=== PATIENT | female | born 1980 | race Caucasian/White ===

== ENCOUNTER 2017-10-15 19:43 | Emergency (ER) | payer MEDICARE, BC ==
--- NOTE | 2017-10-15 20:00 | UC ---
Upper Extremity HPI - HPI Summary HPI Summary: 37 YEAR OLD FEMALE PRESENTS WITH LEFT SHOULDER PAIN. - History of Current Complaint Stated Complaint: LEFT ARM/SHOULDER PAIN Time Seen by Provider: 10/15/17 19:59 Hx Obtained From: Patient Hx Last Menstrual Period: 06/26/16 Onset/Duration: Sudden Onset Severity Initially: Moderate Severity Currently: Moderate Pain Scale Used: 0-10 Numeric - 7 Character: Sharp, Aching Aggravating Factor(s): Lifting, Flexion, Extension, Internal/External Rotation - Allergies/Home Medications Allergies/Adverse Reactions: Allergies Allergy/AdvReac Type Severity Reaction Status Date / Time No Known Allergies Allergy Verified 10/15/17 20:03 Home Medications: Home Medications Ibuprofen TAB* [Advil TAB*] 400 mg PO Q6H PRN 10/15/17 [History Confirmed ] PMH/Surg Hx/FS Hx/Imm Hx Previously Healthy: Yes - Surgical History Surgical History: Yes Surgery Procedure, Year, and Place: VSD repair - Family History Known Family History: Positive: Other - No recent FMH conjunctivitis - Social History Alcohol Use: None Substance Use Type: None Smoking Status (MU): Never Smoked Tobacco Review of Systems Constitutional: Negative Skin: Negative Eyes: Negative ENT: Negative Respiratory: Negative Cardiovascular: Negative Gastrointestinal: Negative Genitourinary: Negative Motor: Negative Neurovascular: Negative Musculoskeletal: Other: - LEFT SHOULDER PAIN Neurological: Negative Psychological: Negative All Other Systems Reviewed And Are Negative: Yes Physical Exam Triage Information Reviewed: Yes Vital Signs Reviewed: Yes Eye Exam: Normal ENT Exam: Normal Dental Exam: Normal Neck exam: Normal Neck: Positive: 1 Respiratory Exam: Normal Cardiovascular Exam: Normal Abdominal Exam: Normal Musculoskeletal: Positive: Other: - LEFT SHOULDER PAIN Neurological Exam: Normal Psychological Exam: Normal Skin Exam: Normal Upper Extremity Course/Dx - Differential Dx/Diagnosis Provider Diagnoses: LEFT SHOULDER PAIN Discharge - Discharge Plan Condition: Stable Disposition: HOME Prescriptions: Ibuprofen TAB* [Motrin TAB* 800 MG] 800 mg PO Q6H #30 tab Patient Education Materials: Shoulder Pain (ED), Shoulder Fracture in Children (ED) Referrals: Kaushal Wharton MD [Medical Doctor] - [facility] – [place] Physical therapy,PT [Medical Doctor] - No Primary Care Phys,NOPCP [Primary Care Provider] - Additional Instructions: glenoid fx
[2017-10-15 20:11] VITALS: BP 101/43
--- NOTE | 2017-10-15 21:06 | RAD ---
INDICATION: Left lateral shoulder plain x2 days COMPARISON: None. TECHNIQUE: 4 views of the left shoulder were obtained. FINDINGS: At the inferior margin of the bony glenoid labrum there is a lucency in the cortex. The remaining visualized bones are intact and appropriately aligned. Joint spaces appear maintained. IMPRESSION: POSSIBLE NONDISPLACED FRACTURE ALONG THE INFERIOR MARGIN OF THE BONY GLENOID LABRUM. If the patient's symptoms persist, follow-up imaging is recommended.
[2017-10-15] MEDS ORDERED: Ibuprofen TAB* 400 MG PO ONE (21:28)
[2017-10-15] MEDS ORDERED: Acetaminop/Codeine 30 MG TAB* 1 TAB (300 MG/30 MG) PO ONE (21:35)
== END 2017-10-15 21:40 | disposition home or self-care (01) ==
LOC: UCCORT 19:43
DX: M25.512 Pain in left shoulder (principal)
CPT/HCPCS: 99212; A9270-GY; G0463

== ENCOUNTER 2019-07-07 14:32 | Emergency (ER) | payer MEDICARE, BC, MEDICAID ==
[2019-07-07 15:45] VITALS: BP 103/52
--- NOTE | 2019-07-07 15:52 | UC ---
Knee Pain HPI - HPI Summary HPI Summary: 38-year-old female who lives at home with her parents who is high functioning Down syndrome. She started experiencing left knee pain on Sunday, 2 days ago with no known injury. It has progressively worsened and had some knee swelling. She has been wearing a knee brace. Denies any fever or chills and no recent illness. 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 Hx Last Menstrual Period: 06/30/19 ?: No Onset/Duration: Gradual Onset Severity Initially: Mild Severity Currently: Mild Pain Intensity: 5 Character: Dull, Aching Aggravating Factor(s): Weight Bearing Alleviating Factor(s): Rest Associated Signs And Symptoms: Positive: Swelling Able to Bear Weight: Yes - Allergies/Home Medications Allergies/Adverse Reactions: Allergies Allergy/AdvReac Type Severity Reaction Status Date / Time No Known Allergies Allergy Verified 07/07/19 15:46 PMH/Surg Hx/FS Hx/Imm Hx Previously Healthy: Yes Endocrine History: Thyroid Disease Cardiovascular History: Cardiac Disease - Surgical History Surgical History: Yes Surgery Procedure, Year, and Place: VSD repair - Family History Known Family History: Positive: Other - No recent FMH conjunctivitis - Social History Occupation: Employed Part-time Lives: With Family Alcohol Use: None Substance Use Type: None Smoking Status (MU): Never Smoked Tobacco Review of Systems All Other Systems Reviewed And Are Negative: Yes Motor: Positive: Negative Neurovascular: Positive: Negative Musculoskeletal: Positive: Other: - Left knee pain with mild swelling.. Negative: Calf Tenderness Neurological: Positive: Negative Psychological: Positive: Negative Is Patient Immunocompromised?: No Physical Exam Triage Information Reviewed: Yes Appearance: Well-Appearing, No Pain Distress, Well-Nourished - Answers questions appropriately. Vital Signs: Initial Vital Signs Temp 99.8 F 07/07/19 15:39 Pulse 81 07/07/19 15:39 Resp 16 07/07/19 15:39 BP 103/52 07/07/19 15:39 Pulse Ox 98 07/07/19 15:39 Vital Signs Reviewed: Yes Musculoskeletal: Positive: Strength Intact, ROM Intact, Other: - Left knee is mildly swollen, knee ligaments are intact, mildly warm to touch, no visible erythema, no deformity. Neurological: Positive: Alert, Muscle Tone Normal, Other: - Reflexes +2 at the knee. Psychological Exam: Normal Skin Exam: Normal Knee Pain Course/Dx - Course Course Of Treatment: Patient has been comfortable here. She has been wearing an elastic knee brace. Knee x-ray:Report: Negative for joint effusion, fracture, or malalignment. Chondrocalcinosis primarily involving the medial and lateral menisci. Minimal osteophytosis. Negative for significant joint space narrowing. Unremarkable soft tissue contours. IMPRESSION: #. Mild osteoarthritis. #. Chondrocalcinosis. - Differential Dx/Diagnosis Provider Diagnosis: Left knee pain Discharge - Sign-Out/Discharge Documenting (check all that apply): Patient Departure All imaging exams completed and their final reports reviewed: Yes - Discharge Plan Condition: Fair Disposition: HOME Patient Education Materials: Swollen Knee Joint (ED) Forms: *Work Release Referrals: Kalie Lyons MD [Primary Care Provider] - Deyanira Franks MD [Medical Doctor] - Additional Instructions: Elevate as much as possible, warm moist heat to the area 4-6 times a day for 20 minutes each time. Ambulate as pain permits. You may take Motrin every 8 hours for pain. Call the orthopedist tomorrow and make an appointment to be seen later this week. - Billing Disposition and Condition Condition: FAIR Disposition: Home - Attestation Statements Provider Attestation: Per institutional requirements, I have reviewed the chart, however, I was not consulted specifically or made aware of this patient by the midlevel provider. I did not personally evaluate, interact with , or disposition this patient.
== END 2019-07-07 17:08 | disposition home or self-care (01) ==
LOC: UCCORT 14:32
DX: M25.562 Pain in left knee (principal); Q90.9 Down syndrome, unspecified
CPT/HCPCS: 99211; G0463